=== PATIENT | female | born 1985 | race Caucasian/White ===

== ENCOUNTER → 2016-11-03 | Outpatient (CLI) | payer OTHER ==
[~2016-11-03] MED LIST: LEVO13.5 IU; SYNT75TA PO
[2016-11-03 13:28] LABS: FREE T4 0.95 NG/DL (0.76-1.46)
[2016-11-06 23:56] LABS: THYROGLOB ABS LESS THAN 1 IU/mL (< OR = 1)
== END ==
LOC: OLAB 11:53
PROVIDERS: ATTEND Family Medicine
DX: E03.9 Hypothyroidism, unspecified (principal)
CPT/HCPCS: 84439; 84443; 84480; 86376; 86800

== ENCOUNTER → 2017-08-28 | Outpatient (CLI) | payer OTHER ==
[~2017-08-28] MED LIST changes: +LEVO.1 PO; +LEVO13.5 I-UTERINE; -LEVO13.5 IU; -SYNT75TA PO
[2017-08-28 14:37] LABS: FREE T4 0.89 NG/DL (0.76-1.46)
[2017-09-01 03:50] LABS: THYROGLOB ABS LESS THAN 1 IU/mL (< OR = 1)
[2017-09-01 13:52] LABS: THYROGLOBULN 5.8 ng/mL (2.8-40.9)
== END ==
LOC: CLAB 13:33
PROVIDERS: ATTEND Family Medicine
DX: E03.9 Hypothyroidism, unspecified (principal)
CPT/HCPCS: 36415; 84432; 84439; 84443; 84480; 86376; 86800